=== PATIENT | male | born 1970 | race Caucasian/White ===

== ENCOUNTER 2022-12-04 08:13 | Day surgery (SDC) | payer BC ==
[~2022-12-04] VITALS: Ht 193 cm; Wt 131.3 kg
[~2022-12-04 08:13] MED LIST: AMOCLA875 PO; ASPI325 PO; CYCL10 PO; DIAZ10 PO; DOXY100 PO; HYDACE10B PO; IBUP800 PO; METPRE4DP PO; NAPR220 PO; OXYACE5T PO; PROM25 PO
[2022-12-04 10:24] VITALS: BP 125/93
== END 2022-12-04 10:20 | disposition home or self-care (01) ==
LOC: ORSCSDS 08:13
PROVIDERS: Surgery
PROC: 0DBM8ZX Excision of Descending Colon, Via Natural or Artificial Opening Endoscopic, Diagnostic (ICD-10-PCS; principal; 2022-12-04 09:15)
PROC: 0DBN8ZX Excision of Sigmoid Colon, Via Natural or Artificial Opening Endoscopic, Diagnostic (ICD-10-PCS; principal; 2022-12-04 09:15)
DX: K62.5 Hemorrhage of anus and rectum (principal); C18.7 Malignant neoplasm of sigmoid colon; D12.4 Benign neoplasm of descending colon; F17.210 Nicotine dependence, cigarettes, uncomplicated; Z79.82 Long term (current) use of aspirin
CPT/HCPCS: 88305; J2704; J7120

== ENCOUNTER 2023-01-08 06:09 | Inpatient (IN) | payer BC ==
[~2023-01-08] VITALS: Ht 193 cm; Wt 134.2 kg
[2023-01-08] VITALS (27 sets, daily range): BP systolic 123–154; BP diastolic 53–109
--- NOTE | 2023-01-08 07:25 | NUR ---
Surgical site prepped with 2% Chlorhexidine cloth wipe. History, Chart, Medications and Allergies reviewed before start of procedure. Lungs clear T/O to Auscultation. Pre-Op teaching done. Pt verbalizes understanding.
[2023-01-08] MEDS ORDERED: ASPI325 PO (15:17)
[2023-01-08] MEDS ORDERED: ACET325 PO (15:17)
[2023-01-08] MEDS ORDERED: IBUP200 PO (15:18)
--- NOTE | 2023-01-08 19:30 | NUR ---
SHIFT SUMMARY NEW ADMIT TO UNIT POD 0 LOWER RESECTION WITH ANASTAMOSIS. ALERT, ORIENTED, COOPERATIVE. EPIDURAL IN PLACE, REPORTS NUMB T7-L3 AND MINIMAL PAIN. MIDLINE RAJIV WITH SCANT DRAINAGE. BOWEL SOUNDS QUIET, NO GAS, NO NAUSEA OR VOMITING. TOLERATING CLEAR LIQUIDS. CALZADA PATENT AND DRAINING. EPIDURAL ASSESSMENTS WNL. UP TO CHAIR FOR DINNER. SPOUSE PRESENT IN ROOM. REPORT GIVEN TO MECHANICAL EXPERT RN.
[2023-01-09] VITALS (14 sets, daily range): BP systolic 113–138; BP diastolic 74–88
--- NOTE | 2023-01-09 06:20 | NUR ---
SHIFT SUMMARY PT HAS RESTED OFF AND ON T/O THE SHIFT. PT POD 0 RESECTION, WITH COLORECTAL ANASTOMOSIS. EPIDURAL IN PLACE, PT HAS HAD SOME ITCHING THAT IS RELIEVED WITH IV BENADRYL BUT OTHERWISE PT HAS TOLEARTED EPIDURAL. PAIN IS WELL CONTROLLED T/O SHIFT. PT DENIES PAIN WITH EACH ASSESSMENT. NUMBESS FROM T7-L5. EPIDURAL SITE WITH SCANT BLOOD, AND MILD SWELLING. PT UP IN CHAIR AT SHIFT CHANGE AND WAS ABLE TO SAFELY TRANSFER FROM CHAIR TO BED WITHOUT MUCH DIFFICULTY, ABLE TO MOVE LEGS IN BED. PT VOIDING ADEQUATELY, CALZADA PATENT AND DRAINING. RESP E/U ON RA, VITALS STABLE. RAJIV DRESSING C/D/I, SUCTION IS INTACT AND GREEN LIGHT FLASHING. PT TOLERATING PO INTAKE. BED IN LOWEST POSITION, CALL LIGHT WITHIN REACH.
[2023-01-09 07:51] LABS: Albumin, Blood 3.4 g/dL (3.4-5.0); Albumin/Globulin Ratio 1.1 (0.8-1.8); Bilirubin, Total 0.7 mg/dL (0.1-1.0); Bun/Creatinine Ratio 9.1 (12.0-20.0); Calcium, Blood 8.7 mg/dL (8.5-10.1); Creatinine, Blood 0.99 mg/dL (0.60-1.20); Globulin, Blood 3.1 g/dL (2.2-4.0); Potassium, Blood 3.7 mmol/L (3.5-5.5); Total Protein, Blood 6.5 g/dL (6.4-8.2)
--- NOTE | 2023-01-09 16:50 | NUR ---
SUMMARY NO ACUTE CHANGES T/O SHIFT. EPIDURAL INFUSING PER ORDERS. PT DENIES PAIN. ABLE TO STAND AND TRANSFER FROM BED TO CHAIR AND BACK. MOVES INDEPENDENTLY IN BED. TOLERATING CLEAR LIQUIDS. ORDERS TO ADVANCE TO FULL LIQUIDS FOR DINNER. CALL LIGHT IN REACH.
[2023-01-10] VITALS (9 sets, daily range): BP systolic 115–147; BP diastolic 70–102
--- NOTE | 2023-01-10 04:11 | NUR ---
SHIFT SUMMARY: PODx2 LOW ANTERIOR RESECTION. MIDLINE RAJIV REMAINS IN PLACE C/D/I BESIDES DRIED SANG DRAINAGE THAT HAS REMAINED UNCHANGED T/O THE SHIFT. TOLERATING CLEAR LIQUID DIET. EPIDURAL MANAGING PAIN WELL, PER PT REPORT. CALZADA REMAINS IN PLACE AND IS DRAINING YELLOW URINE. PT REPORTS CONTINUED NUMBNESS FROM BELOW THE UMBILICUS TO THE MID THIGH REGION. VSS. PT SLEEPING AT THIS TIME WITH CALL LIGHT IN REACH. WILL GIVE REPORT TO DAY TIME RN.
--- NOTE | 2023-01-10 15:46 | NUR ---
PT CALLED TO REPORT EPIDURAL LEAKING ON SHOULDER. FOUND WIRE PULLED FROM YELLOW HUB, NO WAY TO REATTACH. TURNED OFF PUMP, SECURED END IN GAUZE AND TAPED TO PT'S BACK TO PROTECT. PLACED MESSAGE OUT TO DR JIMENEZ.
--- NOTE | 2023-01-10 16:19 | NUR ---
TURNED OVER CARE TO JEAN Hunt RN.
--- NOTE | 2023-01-10 18:04 | NUR ---
TELEPHONE CALL FROM RAY HAGER TO START PO NORCO SINCE EPIDURAL DISCONNECTED AND DC'D.
--- NOTE | 2023-01-10 19:21 | NUR ---
SHIFT SUMMARY PT A&OX4, VSS/RA, AMY PO, CALZADA PATENT & DRAINING YELLOW URINE, PAIN TREATED WITH NORCO/PT REP 09/21 AT THIS TIME, AMB A-EDU/ENC TO USE CALL LIGHT, RAJIV D/I WNL. REPORT TO WINIFRED ROLLE.
[2023-01-11 03:55] VITALS: BP 147/98
--- NOTE | 2023-01-11 05:41 | NUR ---
SHIFT SUMMARY: PODx3 LOW ANTERIOR RESECTION WITH COLORECTAL ANASTOMOSIS. MIDLINE RAJIV REMAINS C/D/I EXPECT DRIED SANG DRAINAGE THAT HAS REMAINED UNCHANGED SINCE BEGINNING OF SHIFT. TOLERATING REGULAR DIET AT THIS TIME. REPORTS HAVING BM AND PASSING GAS. EPIDURAL REMAINS TAPED TO PT BACK. PLANS TO REMOVE TODAY. CALZADA REMAINS IN PLACE. PATENT AND DRAINING TO GRAVITY. RESTING WITH CALL LIGHT IN REACH. WILL GIVE REPORT TO DAY TIME RN.
[2023-01-11 07:00] VITALS: BP 128/85
[2023-01-11] MEDS ORDERED: NORCO 7.5-3251 EAC1 PO (13:59)
[2023-01-11 15:47] VITALS: BP 140/99
--- NOTE | 2023-01-11 17:37 | NUR ---
DISCHARGE NOTE GAVE VERBAL AND WRITTEN DISCHARGE INSTRUCTIONS AT APPROX 1735. PT REPORTED UNDERSTANDING AND WAS A&OX4. PT WAS PROVIDED WITH MEDIPORE DRESSINGS, VSS, PAIN MANAGED WITH NORCO, VOIDING, TOLERATING PO, AND AMB. PT'S BELONINGS WERE RETURNED AND PT WAS AWAITING IN THE ROOM FOR HIS RIDE TO ARRIVE.
== END 2023-01-11 18:07 | disposition home or self-care (01) | DRG 331 ==
LOC: SURS 06:09 → PRE IP 07:30 → SURS 12:18
PROVIDERS: ADMIT Surgery
PROC: 0DTN0ZZ Resection of Sigmoid Colon, Open Approach (ICD-10-PCS; principal; 2023-01-08 07:30)
DX: C18.7 Malignant neoplasm of sigmoid colon (principal); I10 Essential (primary) hypertension; R97.0 Elevated carcinoembryonic antigen [CEA]; E66.9 Obesity, unspecified; Z68.36 Body mass index [BMI] 36.0-36.9, adult; Z87.891 Personal history of nicotine dependence; Z90.49 Acquired absence of other specified parts of digestive tract; Z98.890 Other specified postprocedural states; Z88.5 Allergy status to narcotic agent
CPT/HCPCS: 36415; 80048; 80053; 88304; 88307; 93005; 93010; A9270; J0295; J1100; J1200; J1650; J2250; J2405; J2704; J3010; J7120; V2790

== ENCOUNTER 2024-06-09 08:56 | Day surgery (SDC) | payer BC ==
[~2024-06-09] VITALS: Ht 193 cm; Wt 127.3 kg
[~2024-06-09 08:56] MED LIST changes: +ACET325 PO; +ALBU90OI; +ANORO ELLIPTA1 EAC1 INH; +IBUP200 PO; +Lactated Ringer's 1,000 ML IV ONE; +NORCO 7.5-3251 EAC1 PO; +propofoL 50 ML IV ONE
[2024-06-09] MEDS ORDERED: Lactated Ringer's 1,000 ML IV ONE (10:28)
[2024-06-09 11:45] VITALS: BP 120/94
== END 2024-06-09 11:33 | disposition home or self-care (01) ==
LOC: ORSCSDS 08:56
PROVIDERS: Surgery
PROC: 0DBP8ZX Excision of Rectum, Via Natural or Artificial Opening Endoscopic, Diagnostic (ICD-10-PCS; principal; 2024-06-09 10:15)
DX: Z85.038 Personal history of other malignant neoplasm of large intestine (principal); K62.1 Rectal polyp; Z79.899 Other long term (current) drug therapy
CPT/HCPCS: 88305; J2704; J7120